=== PATIENT | male | born 1995 | race Caucasian/White ===

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

== ENCOUNTER 2017-04-01 12:35 | Emergency (ER) | payer OTHER ==
[~2017-04-01] VITALS: Ht 175.3 cm; Wt 67.8 kg
[2017-04-01 12:49] VITALS: TEMP 36.7; Ht 175.3 cm; Wt 67.8 kg
[2017-04-01] MEDS ORDERED: PROPARACAINE HCL 0.5% OP SOLN 15 ML BTL OP STA (13:59)
[2017-04-01] MEDS ORDERED: CIPROFLOXACIN HCL 0.3% OP SOLN 2.5 ML BTL OP STA (14:35)
[2017-04-01] MEDS ORDERED: CIPR0.3S OP (14:37)
[2017-04-01] MEDS ORDERED: OXYC1TAB3 PO (14:38)
--- NOTE | 2017-04-01 14:40 | EMERGENCY ROOM VISIT NOTE ---
History First contact with patient: 13:50 Chief Complaint: EYE PAIN Stated Complaint: EYE INJURY FROM CONTACTS History of Present Illness The patient is a 21 year old male who presents to the Emergency Room via private vehicle accompanied by female with complaints of"eye injury from contacts". The patient states that he is a contact lens wearer, and yesterday when her room in the context he feels as though he may have scratched his left eye. He states that he has done this before, but never quite this bad. He rates the pain as a 6/10. He is very light sensitive. He notes it difficult to open left eye secondary to pain. He woke up today and had crusty discharge from the left eye. Review of Systems A complete 6-point Review of Systems was discussed with the patient, with pertinent positives and negatives listed in the History of Present Illness. All remaining Review of Systems questions can be considered negative unless otherwise specified. Past Medical/Surgical History Medical Problems: (1) No pertinent past medical history Family History Patient reports no known family medical history. Social History Smoking Status: Never Smoker Alcohol Use: occasionally Marital Status: single Housing Status: lives with family Occupation Status: [employer] student Current/Historical Medications Scheduled Ciprofloxacin Hcl (Ophth) (Ciloxan Oph), 1 DROPS OP DIRECTED Scheduled PRN Oxycodone Ir (Roxicodone Ir), 1-2 TAB PO Q4H PRN for Pain Physical Exam Vital Signs Date Time Temp Pulse Resp B/P (MAP) Pulse Ox O2 Delivery O2 Flow Rate FiO2 04/01/17 14:44 52 18 117/73 97 Room Air 04/01/17 12:49 36.7 71 18 110/68 97 Room Air Right Eye Acuity: 20/50 Left Eye Acuity: did not do Physical Exam VITAL SIGNS - Vital signs and nursing notes were reviewed. Stable. GENERAL -21-year-old male appearing his stated age. Communicates well with provider and answers questions appropriately. HEAD - Normocephalic, Atraumatic. No Gomez's Sign or Raccoon's Eyes. No depressed skull fractures palpable. EYES - PERRL with EOMI bilaterally. Sclera normal without noticeable foreign body or excoriations. No injection noted in the left eye. Without subconjunctival hemorrhage. Palpebral conjunctiva pink and moist with no injection or discharge noted. Slit lamp examination performed as further described. EARS - No deformities of external structures noted on gross examination bilaterally. Handle of malleus, umbo, cone of light, pars tensa/flaccid all easily visualized. NOSE - Midline and without cyanosis. Without discharge. MOUTH/OROPHARYNX - Without perioral cyanosis. Tongue midline with equal elevation of palate bilaterally. No tonsillar hypertrophy, erythema, or exudates noted. Fair dentition noted. Slit Lamp Examination was performed of the left eye(s). Alcaine drops were applied to the affected eye(s) for proper anesthetization. The affected eye(s) were stained with Fluorescein stain to precipitate adequate visualization of any conjunctival/scleral excoriations or ulcers. The patient's face was comfortably rested on the chin guard of the slit lamp apparatus. The lights were dimmed and the affected eye(s) were thoroughly examined under microscopy using the blue light. No uptake was present within the left eye. Additionally, the eye(s) were examined under microscopy using the regular light. Close examination revealed no abnormalities. Patient tolerated the procedure well and no complications were met. Medical Decision & Procedures Medications Administered Medications (Trade) Dose Ordered Sig/Ciarra Route Start Time Stop Time Status Last Admin Dose Admin Ciprofloxacin HCl (Ciprofloxacin 0.3% Op Soln) 1 drops NOW STAT OP 04/01/17 14:35 04/01/17 14:37 DC 04/01/17 14:43 1 DROPS Medical Decision Patient was seen and evaluated as above. He presents to us today accompanied by female with left eye discomfort. His visual acuity is unobtainable from the left eye. He was given Alcaine drops and noted immediate relief of his pain. This is reassuring. The lab exam was obtained after staining and was negative. Records were also excellent noting 19.5 average in the right, 15 and the left. I suspect this is of anterior chamber or forward etiology, I do not suspect any emergent cause. I suspect he likely has a subclinical abrasion. For this reason I will consult ophthalmology to discuss this further. I spoke with Dr. Vaughan. He recommended Cipro eyedrops, and then have him call the office at 8 AM to schedule follow-up. I do believe this is reasonable. The patient and female as to if he could follow with his regular eye doctor indicated that he may, but is to also contact bell person if his eye doctor does not feel comfortable doing so. He'll be given Ciloxan eyedrops, the remainder sent to his pharmacy. He was educated upon management, educated upon worrisome symptoms in which to return, had actions answered prior to discharge, and was discharged home in good condition. He will also have a short course of pain medication. In the treatment of this patient controlled medication was utilized and therefore the [facility], Prescription Drug Monitoring Program website was utilized to look up this patient. No concerns were identified that would prohibit or alter my treatment decision. In the evaluation and treatment of this patient, the following differential diagnoses were considered: Corneal Abrasion, Conjunctivitis, Eye Contusion, Globe Injury, Orbital Floor Injury (Blowout Fracture), Corneal Ulcer, Keratitis , Herpes Zoster Opthalmic, Blepharitis, Orbital Cellulitis, Iritis, Scleritis/ Episcleritis, Uveitis, Temporal Arteritis, Subconjunctival Hemorrhage. Impression Primary Impression: Eye pain Departure Information Dispostion Home / Self-Care Condition GOOD Prescriptions Oxycodone Ir (Roxicodone Ir) 5 Mg Tab 1-2 TAB PO Q4H Y for Pain, #15 TAB For Initial Treatment Prov: Zuhair Xiao PA-C 04/01/17 Ciprofloxacin Hcl (Ophth) (CILOXAN OPH) 0.3 % Jasmin 1 DROPS OP DIRECTED, #1 BTL Prov: Zuhair Xiao PA-C 04/01/17 Referrals Marito Lopez III, CRNP (PCP) Trev Parson M.D. Patient Instructions My [facility] Additional Instructions You have been treated in the Emergency Department today for your Corneal Abrasion. You have been prescribed Oxy IR to be used for pain control. This is a narcotic medication. You cannot drive or consume alcohol while on this medicine. This medicine should only be used for pain that cannot be controlled with over-the- counter pain medicines. You have been prescribed Ciloxan eye drops. This is an antibiotic which will help to prevent an infection from developing in your affected eye. You should use 2 drops in the affected eye every 2 hours while awake for the first 2 days, then every 4 hours for the remaining 5 days. This is a total of a 7-day course for these antibiotic eye drops. For pain control, you can use the following [id number] medicines (if >12 yo): - Regular strength (325mg/tab) Tylenol (acetaminophen) 2 tabs every 4-6 hours as needed. Do not exceed 12 tablets in a 24 hour period. Avoid taking more than 3 grams (3000 mg) of Tylenol per day. This includes any other sources of acetaminophen you may take on a regular basis. - Regular strength (200 mg/tab) Advil (ibuprofen) 1-2 tabs every 4-6 hours as needed. Do not exceed a dose of 3200 mg per day. You should relax in a quiet, dark place for the rest of the day. You should wear sunglasses while outside for the next few days until your eyes are not as sensitive to the light. You should schedule a follow-up appointment tomorrow with Eye Doctor ( Motor Vehicle Clerk) Dr. Parson for further evaluation and treatment of your Corneal injury Return to the Emergency Department if your current symptoms worsen despite treatment course outlined above, or if you develop any of the following symptoms : intractable pain, visual disturbances, loss of vision, increased redness, swelling, drainage, or if you develop a fever.
[2017-04-01 14:44] VITALS: BP 117/73; PULSE 52; O2SAT 97
== END 2017-04-01 14:58 | disposition home or self-care (01) ==
LOC: C.EDB 12:36 → C.EDD 14:58
DX: H57.12 Ocular pain, left eye (principal)